=== PATIENT | male | born 1975 | race Caucasian/White ===

== ENCOUNTER 2019-11-22 14:50 | Emergency (ER) | payer MEDICAID, SELFPAY ==
--- NOTE | 2019-11-22 14:48 | ECG_ITS ---
APPROVED REPORT Exam: Resting ECG HR:83 bpm ECG Measurements Heart Rate 83 AXES NE 146 P 54 QRSd 70 QRS 69 QT 364 T 71 QTc 427 <Conclusion> Sinus rhythm with premature atrial complexes with aberrant conduction Otherwise normal ECG Electronically signed by : Logan Kerns, 11/23/2019 16:40:12
[2019-11-22 14:50] VITALS: BP 137/80; PULSE 96; RESP 20; TEMP 36.8; O2SAT 100; BMI 20.3
--- NOTE | 2019-11-22 14:51 | XR_ITS ---
PROCEDURE: XR CHEST 2V CLINICAL HISTORY: Chest Pain Smoker, chest pain COMPARISON: CXR1 CHEST-PORTABLE from 06/22/2014 CXR CHEST(2 VIEWS-NOT PORTABLE) from 10/31/2014 CXR1 CHEST-PORTABLE from 05/19/2017 FINDINGS: The cardiomediastinal silhouette and pulmonary vascularity are within normal limits. No lobar consolidation or collapse is evident. There is a faint opacity overlying the left lower lung zone measuring 2 by 1.7 cm which may represent a developing pulmonary nodule. A faint area of infiltrate is also a consideration. Consider chest CT in this patient with history of smoking. The remaining lungs are clear. There is mild hyperinflation with mild prominence of the anterior clear space suggesting COPD. No acute bony abnormalities. IMPRESSION: COPD with developing nodule versus nodular area of infiltrate in the left lower lobe. Consider chest CT for further evaluation. Dictated by: Marky Arreola MD 11/22/2019 16:06 Electronically signed by Marky Arreola MD in [place] 11/22/2019 16:06
--- NOTE | 2019-11-22 15:06 | PC.NURSE ---
NOTIFIED RAD OF CXR
[2019-11-22 15:07] LABS: Basophils # 0.1 K/mm3 (0-0.2); Basophils % 0.7 % (0.1-2.0); Eosinophils # 0.2 K/mm3 (0.0-0.4); Eosinophils % 1.9 % (0.1-12.0); Hematocrit 45.1 % (42.0-52.0); Hemoglobin 14.8 g/dL (14.1-18.0); Lymphocytes # 3.1 K/mm3 (0.7-4.5); Lymphocytes % 28.4 % (10-50); Mean Corpuscular HGB Conc 32.8 g/dL (31.8-35.4); Mean Corpuscular Hemoglobin 28.8 pg (27.0-31.2); Mean Corpuscular Volume 87.7 fl (80-94); Mean Platelet Volume 9.9 fl (7.4-10.4); Monocytes # 0.7 K/mm3 (0.1-1.0); Monocytes % 6.3 % (1.7-9.3); Neutrophils # 6.8 K/mm3 (1.8-7.8); Neutrophils % 62.6 % (37.0-80.0); Platelet Count 295 K/mm3 (142-424); Red Blood Count 5.14 M/mm3 (4.60-6.20); White Blood Count 10.9 K/mm3 (4.8-10.8)
[2019-11-22 15:09] LABS: Chloride 100 mmol/L (98-107); Potassium 3.9 mmoL/L (3.5-5.1); Sodium 131 mmol/L (136-145)
[2019-11-22 15:12] LABS: Anion Gap 4.9 mEq/L (5-15); Blood Urea Nitrogen 8 mg/dl (9-20); Carbon Dioxide 30 mmol/L (22.0-30.0); Creatinine Clearance Estimated 101 mL/min (50-200); Estimated Glomerular Filt Rate 92 ml/min (>60); GFR (African American) 111 ML/MIN (>60)
[2019-11-22 15:13] LABS: Calcium 8.9 mg/dl (8.4-10.2); Glucose 97 mg/dl (74-100)
[2019-11-22 15:27] LABS: Troponin I < 0.01 ng/ml (0.00-0.034)
--- NOTE | 2019-11-22 16:24 | HMH.EDCP ---
ED Disposition Clinical Impression: Chest pain Disposition: Home, Self-Care Condition on Discharge: Good Instructions: DI for Atypical Chest Pain Additional Instructions: Please follow-up with Dr. Gill's office either with Nestor Hammond or Dr. Gill the number is [phone] Prescriptions: Metoprolol Succinate [Metoprolol Succinate 25mg Tablet*] 25 mg PO DAILY 30 Days #30 tab Transmission Status: Pending to [id number] Referrals: Provider,Referral, [Primary Care Provider] - - Critical Care Critical Care Time: No Attestation: On 11/22/19, the high probability of a clinically significant, sudden or life threatening deterioration of the following system(s) required my full and direct attention, intervention and personal management. The time I documented below is in addition to time spent performing reported procedures but includes the following listed in this critical care notation. Medical Decision Making - Medical Records Medical records reviewed: Yes: I reviewed the patient's medical records. - Jonathan Inquiry Pt receiving controlled substance: No Vital Signs: 11/22/19 14:50 Temperature 98.3 F Temperature Source Oral Pulse Rate [Right Radial] 96 H Respiratory Rate 20 Blood Pressure [Right Arm] 137/80 Blood Pressure Mean [Right Arm] 99 Blood Pressure Source [Right Arm] Automatic Cuff Blood Pressure Position [Right Arm] Sitting 02 Sat by Pulse Oximetry 100 Oxygen Delivery Method Room Air - Lab Data Lab results reviewed: Yes: I reviewed the patient's lab results. Lab Results 11/22/19 14:52: WBC 10.9 H, RBC 5.14, Hgb 14.8, Hct 45.1, MCV 87.7, MCH 28.8, MCHC 32.8, RDW 13.0, Plt Count 295, MPV 9.9, Neut % (Auto) 62.6, Lymph % (Auto) 28.4, Coleman % (Auto) 6.3, Eos % (Auto) 1.9, Baso % (Auto) 0.7, Neut # (Auto) 6.8, Lymph # (Auto) 3.1, Coleman # (Auto) 0.7, Eos # (Auto) 0.2, Baso # (Auto) 0.1 11/22/19 14:52: Sodium 131 L, Potassium 3.9, Chloride 100, Carbon Dioxide 30, Anion Gap 4.9 L, BUN 8 L, Creatinine 0.90, Estimated Creat Clear 101, Estimated GFR 92, Est GFR ( Amer) 111, Glucose 97, Calcium 8.9, Troponin I < 0.01 Result diagrams: 11/22/19 14:52 11/22/19 14:52 Orders (Tests/Meds): ED MEDICATIONS Discontinued Medications Generic Name Dose Route Start Last Admin Trade Name Lizett PRN Reason Stop Dose Admin Nitroglycerin 0.5 gm 11/22/19 15:48 11/22/19 15:57 Nitroglycerin 1 Inch Oint Udp TD 11/22/19 15:49 0.5 gm ONCE ONE Administration ORDERS Category Date Time Status Troponin I Q3H Lab 11/22/19 18:00 Ordered Troponin I Q3H Lab 11/22/19 21:00 Ordered - Radiology Data #1 Image(s): Chest Preliminary Findings: Normal/NAD - ECG Data Tracing #1 I reviewed this ECG and interpreted as documented below: Normal Sinus Rhythm: Yes Chest Pain HPI - General Chief Complaint: Chest Pain Stated Complaint: CP Time Seen by Provider: 11/22/19 16:24 Mode of Arrival: Ambulatory Source of Information: Patient Limitations: No Limitations Description of Symptoms (Recalled from ER Triage Doc. by RN): PT C/O CP IN THE CENTER OF HIS CHEST X3 DAYS, CAUSING SOA. PT ALSO ADVISES THAT YESTERDAY, HIS LT ARM BEGAN HURTING AND TINGLING WELL. PT DENIES N/V, AYERS - History of Present Illness HPI narrative: 44-year-old male presents the ED with chest pain x3 days. He states that the pain is substernal on the left side of his chest describes it as a pressure/sharp sensation he states that is been waxing and waning over the last 3 days. He rates his pain 6 out of 10. He also states that he feels as heart beating fast and describes palpitations. He states that increasing intrathoracic pressure exacerbates the pain and that rest alleviates the pain. Patient denies any previous cardiac history but does state when he was in the [employer] at [place] he was exposed to possibly some sort of tear gas and had an anticholinergic reaction. - Related Data Home Medicati
[2019-11-22 16:50] VITALS: BP 137/80; PULSE 96; RESP 20; TEMP 36.8; O2SAT 100
== END 2019-11-22 16:52 | disposition home or self-care (01) ==
PROVIDERS: Emergency Provider Family Medicine
DX: R07.89 Other chest pain (principal); F17.210 Nicotine dependence, cigarettes, uncomplicated
CPT/HCPCS: 71046; 80048; 84484; 85025; 93005; 99283

== ENCOUNTER 2020-05-16 18:49 | Emergency (ER) | payer SELFPAY ==
[2020-05-16 18:48] VITALS: BP 151/98; PULSE 103; RESP 20; TEMP 36.6; O2SAT 98; BMI 20.3
--- NOTE | 2020-05-16 19:02 | HMH.EDABDPAI ---
ED Disposition Condition on Discharge: Fair - Critical Care Critical Care Time: No <EstebancarolynValeriano archer - Last Filed: 05/16/20 19:29> <Anthony Serna - Last Filed: 05/16/20 21:41> Clinical Impression: Abdominal pain in male, Gastroenteritis, Amphetamine abuse Leukocytosis Qualifiers: Leukocytosis type: unspecified Qualified Code(s): D72.829 - Elevated white blood cell count, unspecified Disposition: Left Against Medical Advice Instructions: DI for Acute Abdomen Additional Instructions: call pcp in am Referrals: Provider,Referral, [Referring] - Attestation: On 05/16/20, the high probability of a clinically significant, sudden or life threatening deterioration of the following system(s) required my full and direct attention, intervention and personal management. The time I documented below is in addition to time spent performing reported procedures but includes the following listed in this critical care notation. Medical Decision Making - Medical Records Medical records reviewed: Yes: I reviewed the patient's medical records. - Jonathan Inquiry Pt receiving controlled substance: No - Lab Data Result diagrams: 05/16/20 18:49 05/16/20 18:49 <Valreiano Oconnor - Last Filed: 05/16/20 19:29> - Lab Data Lab results reviewed: Yes: I reviewed the patient's lab results. Result diagrams: 05/16/20 18:49 05/16/20 18:49 - Radiology Data #1 Image(s): Chest Image Reviewed: Yes I reviewed the patient's radiology image Preliminary Findings: Normal/NAD - CT Data CT Scan: Abdomen, Pelvis Time Received: 21:[address] Reviewed: Yes: I have viewed the radiologist's interpretation Preliminary Findings: Normal/NAD <Anthony Serna - Last Filed: 05/16/20 21:41> Vital Signs: 05/16/20 18:48 05/16/20 20:43 05/16/20 21:15 Temperature 97.9 F Temperature Source Oral Pulse Rate [Radial] 103 H 103 H 101 H Respiratory Rate 20 18 18 Blood Pressure [Right Arm] 151/98 H 163/85 H 144/82 H Blood Pressure Mean [Right Arm] 115 111 102 Blood Pressure Source [Right Arm] Automatic Cuff Blood Pressure Position [Right Arm] Sitting 02 Sat by Pulse Oximetry 98 99 97 Oxygen Delivery Method Room Air Room Air Room Air - Lab Data Lab Results 05/16/20 18:49: WBC 33.3 H*, RBC 5.24, Hgb 16.3, Hct 47.4, MCV 90.4, MCH 31.1, MCHC 34.4, RDW 15.0, Plt Count 284, MPV 25.7 H, Neut % (Auto) 79.7, Lymph % (Auto) 14.3, Perkins % (Auto) 4.6, Eos % (Auto) 1.4, Baso % (Auto) 1.9, Neut # (Auto) 26.5 H, Lymph # (Auto) 4.8 H, Perkins # (Auto) 1.5 H, Eos # (Auto) 0.5 H, Baso # (Auto) 0.6 H, Total Counted 100, Neutrophils % (Manual) 65, Lymphocytes % (Manual) 30, Monocytes % (Manual) 5, Platelet Estimate Normal, RBC Morphology Normal 05/16/20 18:49: Sodium 135 L, Potassium 3.8, Chloride 99, Carbon Dioxide 21 L, Anion Gap 18.8 H, BUN 17, Creatinine 1.70 H, Estimated Creat Clear 53, Estimated GFR 44 L, Est GFR ( Amer) 53 L, Glucose 105 H, Calcium 9.5, Total Bilirubin 2.7 H, AST 44, ALT 35, Alkaline Phosphatase 58, Total Protein 8.1, Albumin 4.7, Globulin 3.4 H, Albumin/Globulin Ratio 1.4 05/16/20 18:49: Lipase 29 05/16/20 18:49: ESR 7 05/16/20 18:49: Total Creatine Kinase 320 H, Troponin I < 0.01, C-Reactive Protein 2.4 05/16/20 19:19: Lactate 2.1 05/16/20 20:41: Urine Opiates Screen Negative, Urine Methadone Screen Negative, Ur Barbituates Screen Negative, Ur Phencyclidine Scrn Negative, Ur Amphetamines Screen Manager Of Operations, U Benzodiazepines Scrn Negative, Urine Cocaine Screen Negative, U Marijuana (THC) Screen Positive H 05/16/20 20:41: Urine Color Yellow, Urine Appearance Clear, Urine pH 5.5, Ur Specific [place] 1.010, Urine Protein Trace, Urine Glucose (UA) Negative, Urine Ketones 2+, Urine Blood Trace-l, Urine Nitrate Negative, Urine Bilirubin Negative, Urine Urobilinogen 0.2, Ur Leukocyte Esterase Negative, Urine WBC 3-5, Ur Squamous Epith Cells 3-5, Urine Bacteria 1+ Orders (Tests/Meds): ED MEDICATIONS Generic Name Dose Route Start L
[2020-05-16 19:03] LABS: Basophils # 0.6 K/mm3 (0-0.2); Basophils % 1.9 % (0.1-2.0); Eosinophils # 0.5 K/mm3 (0.0-0.4); Eosinophils % 1.4 % (0.1-12.0); Hematocrit 47.4 % (42.0-52.0); Hemoglobin 16.3 g/dL (14.1-18.0); Lymphocytes # 4.8 K/mm3 (0.7-4.5); Lymphocytes % 14.3 % (10-50); Mean Corpuscular HGB Conc 34.4 g/dL (31.8-35.4); Mean Corpuscular Hemoglobin 31.1 pg (27.0-31.2); Mean Corpuscular Volume 90.4 fl (80-94); Mean Platelet Volume 25.7 fl (7.4-10.4); Monocytes # 1.5 K/mm3 (0.1-1.0); Monocytes % 4.6 % (1.7-9.3); Neutrophils # 26.5 K/mm3 (1.8-7.8); Neutrophils % 79.7 % (37.0-80.0); Platelet Count 284 K/mm3 (142-424); Red Blood Count 5.24 M/mm3 (4.60-6.20)
[2020-05-16 19:04] LABS: Potassium 3.8 mmoL/L (3.5-5.1); Sodium 135 mmol/L (136-145)
[2020-05-16 19:05] LABS: Chloride 99 mmol/L (98-107)
[2020-05-16 19:06] LABS: Alanine Aminotransferase 35 U/L (12-78); Aspartate Amino Transferase 44 U/L (17-59); Blood Urea Nitrogen 17 mg/dl (9-20); Creatinine Clearance Estimated 53 mL/min (50-200); Estimated Glomerular Filt Rate 44 ml/min (>60); GFR (African American) 53 ML/MIN (>60)
[2020-05-16 19:07] LABS: Albumin Level 4.7 g/dl (3.5-5.0); Albumin/Globulin Ratio 1.4 (1.1-1.8); Alkaline Phosphatase 58 U/L (38-126); Anion Gap 18.8 mEq/L (5-15); Bilirubin,Total 2.7 mg/dl (0.2-1.3); Calcium 9.5 mg/dl (8.4-10.2); Carbon Dioxide 21 mmol/L (22.0-30.0); Globulin 3.4 g/dL (1.3-3.2); Glucose 105 mg/dl (74-100); Lipase 29 U/L (23-300); MANUAL DIFFERENTIAL MANUAL DIFFERENTIAL (MANUAL DIFF); Total Protein,Serum 8.1 g/dl (6.3-8.2)
--- NOTE | 2020-05-16 19:13 | CT_ITS ---
PROCEDURE: CT ABDOMEN PELVIS W CON CLINICAL INDICATION: LUQ pain, leukocytosis COMPARISON: No exams were available for comparison TECHNIQUE: IV Contrast: 75ML Isovue 370 Oral Contrast None Axial images obtained with sagittal and coronal reformats. All CT scans at the facility use one or more dose reduction, viz: automated exposure control, ma/kV adjustment per patient size (including targeted exams where dose is matched to indication, i.e. head), or iterative reconstruction technique. FINDINGS: The [id number] does not include the entire abdomen on the left and posteriorly with cut off of the left lung base and left upper lateral posterior abdominal and thoracic wall. There is a 4 mm nodule in the left lung base which is incompletely imaged and may be due to a granuloma. The liver, gallbladder, spleen, adrenal glands, pancreas, and kidneys have an unremarkable appearance. No intestinal obstruction or free air. No evidence of appendicitis or diverticulitis. There are few scattered air-fluid levels within nondistended small bowel in the lower abdominal region. No pelvic mass or abnormal fluid collection. There are mild osteoarthritic changes of the hips. No acute bony anomalies. IMPRESSION: No acute finding. Please see above for detail Dictated by: Marky Arreola MD 05/17/2020 08:41 Marky Arreola MD in [place] 05/17/2020 08:41
[2020-05-16 19:31] LABS: White Blood Count 33.3 K/mm3 (4.8-10.8)
[2020-05-16 19:36] LABS: Lymphocytes % 30 % (10-50); Monocytes % 5 % (2-9); Neutrophils % 65 % (42-76); Platelet Estimate Normal; RBC Morphology Normal; Total Cells Counted 100
[2020-05-16 19:42] LABS: Lactic Acid 2.1 mmol/L (0.7-2.1)
[2020-05-16 20:43] VITALS: BP 163/85; PULSE 103; RESP 18; O2SAT 99
[2020-05-16 20:49] LABS: Creatine Kinase 320 U/L (55-170)
[2020-05-16 20:49] LABS: Microscopic, Urine URINE MICROSCOPIC (MICROSCOPIC)
[2020-05-16 20:54] LABS: C-Reactive Protein 2.4 mg/L (0-4)
[2020-05-16 20:57] LABS: Appearance,Urine CLEAR (Clear); Blood, Urine TRACE-L (Negative); Color,Urine YELLOW (Yellow); Glucose,Urine (UA) Negative (Negative); Ketones,Urine 2+ (Negative); Leukocyte Esterase,Urine Negative (Negative); Nitrate,Urine Negative (Negative); PH,Urine 5.5 (5.0-8.5); Protein,Urine TRACE (Negative); Urobilinogen,Urine 0.2 EU/dl (0.2)
--- NOTE | 2020-05-16 21:00 | XR_ITS ---
PROCEDURE: XR CHEST 2V CLINICAL HISTORY: high white count Elevated white blood cell count, smoker COMPARISON: CR CXR CHEST(2 VIEWS-NOT PORTABLE) from 10/31/2014 CR CXR1 CHEST-PORTABLE from 05/19/2017 CR XR CHEST 2V from 11/22/2019 FINDINGS: The cardiomediastinal silhouette and pulmonary vascularity are within normal limits. The lungs are clear without infiltrates, suspicious nodules, or pleural effusions. No acute bony abnormalities. IMPRESSION: No acute findings. Dictated by: Marky Arreola MD 05/17/2020 04:58 Marky Arreola MD in [place] 05/17/2020 04:58
[2020-05-16 21:06] LABS: Benzodiazepines Screen,Urine Negative ng/ml (<200)
[2020-05-16 21:07] LABS: Barbiturates Screen,Urine Negative ng/ml (<200)
[2020-05-16 21:08] LABS: Cannabinoid Screen,Urine Positive ng/ml (<50); Cocaine Screen,Urine Negative ng/ml (<300)
[2020-05-16 21:09] LABS: Methadone Screen,Urine Negative ng/ml (<300)
[2020-05-16 21:10] LABS: Bilirubin,Urine Negative (Negative); Opiate Screen,Urine Negative ng/ml (<300); Phencyclidine Screen,Urine Negative ng/ml (<25)
[2020-05-16 21:11] LABS: Bacteria,Urine 1+ /lpf
[2020-05-16 21:12] LABS: Troponin I < 0.01 ng/ml (0.00-0.034)
[2020-05-16 21:15] VITALS: BP 144/82; PULSE 101; RESP 18; O2SAT 97
[2020-05-16 21:29] LABS: Erythrocyte Sedimentation Rate 7 mm/hr (0-15)
--- NOTE | 2020-05-16 21:35 | PC.NURSE ---
pt asked this nurse when he could leave. this nurse explained to him that the doctor might be wanting to admit him to the hospital and that we were waiting to find out. pt stated no i wont do it. im not staying. i have a ride and i want to leave now. pt informed that he would have to sign out AMA to do so.
[2020-05-16 21:39] VITALS: BP 144/82; PULSE 101; RESP 16; TEMP 36.6; O2SAT 97
[2020-05-16 21:40] LABS: Coronavirus 19 IgG Antibody Negative (Negative); Coronavirus 19 IgM Antibody Negative (Negative)
[2020-05-16 21:45] LABS: Procalcitonin 0.079 ng/mL (0.0-2.0)
[2020-05-18 21:46] LABS: Peripheral Smear Review Scanned Result
[2020-05-19 22:08] LABS: Amphetamine Positive (.); Amphetamines Positive (.); Methamphetamine Positive (.)
[2020-05-20 10:57] LABS: Amphetamine (GC/MS) >3000 ng/mL (Cutoff=500); Methamphetamine (GC/MS) >3000 ng/mL (Cutoff=500)
== END 2020-05-16 21:48 | disposition left against medical advice (07) ==
PROVIDERS: Emergency Medicine; Emergency Provider Emergency Medicine; PCP Family Medicine
DX: D72.829 Elevated white blood cell count, unspecified (principal); Z53.29 Procedure and treatment not carried out because of patient's decision for other reasons; R10.32 Left lower quadrant pain; R11.2 Nausea with vomiting, unspecified; Z88.0 Allergy status to penicillin; Z88.6 Allergy status to analgesic agent; Z72.0 Tobacco use
CPT/HCPCS: 71046; 74177; 80053; 80305; 80324; 81001; 82550; 83605; 83690; 84145; 84484; 85007; 85025; 85651; 86140; 86328; 87040; 96365; 96366; 96375; 99284; J2405; Q9967